=== PATIENT | female | born 2000 | race Two or more races ===

== ENCOUNTER 2023-12-06 21:34 | Emergency (ER) | payer OTHER ==
[~2023-12-06] VITALS: Ht 160 cm; Wt 59.0 kg
[2023-12-06 23:36] LABS: HEMATOCRIT 33.2 % (36.0-45.00); MEAN CELL VOLUME 76.2 fL (80.00-100.00); MEAN CORPUSCULAR HEMOGLOBIN 25.3 pg (27.00-32.0); MEAN CORPUSCULAR HGB CONC 33.2 g/dl (32.0-36.0); PLATELET COUNT 194 K/uL (150-450); RED BLOOD COUNT 4.36 M/uL (4.00-6.00); RED CELL DISTRIBUTION WIDTH 14.9 % (11.5-14.5)
[2023-12-06 23:51] LABS: INR 1.02; PARTIAL THROMBOPLASTIN TIME 30.2 SECONDS (22.0-34.0); PROTHROMBIN TIME 10.7 SECONDS (9.0-11.5)
[2023-12-06 23:58] LABS: ALBUMIN 3.5 gm/dL (3.4-5.0); BILIRUBIN TOTAL 0.32 mg/dL (0.3-1.2); CALCIUM 9.2 mg/dL (8.5-10.1); CREATININE SERUM 0.78 mg/dL (0.55-1.02); GFR 90.73; GLOBULINA 3.3 G/DL (2.4-3.5); POTASSIUM 3.2 mEq/L (3.5-5.1); TOTAL PROTEIN 6.8 gm/dL (6.4-8.2)
[2023-12-07 00:08] LABS: PH,URINE 5.5 (5.0-8.0); URINE APPEARANCE Clear; URINE BILIRRUBIN Negative (NEGATIVE); URINE BLOOD Large; URINE COLOR Orange; URINE GLUCOSE Negative (NEGATIVE); URINE KETONE Negative (NEGATIVE); URINE LEUKOCYTE Small; URINE NITRATE Negative; URINE PROTEIN 30 (NEGATIVE); URINE UROBILINOGEN 0.2 E.U./dl
[2023-12-07 00:10] LABS: URINE BACTERIA 143.6 uL (0.0-1933); URINE RBC 9572.7 uL (0.0-20.8); URINE WBC 55.1 uL (0.0-23.2)
[2023-12-07 00:26] LABS: URINE CAST 1.06 uL (0.0-1.40)
[2023-12-07] MEDS ORDERED: ONDANSETRON HCL 2 MG/ML VIAL IV ONE (03:00)
[2023-12-07] MEDS ORDERED: DOXYCYCLINE HYCLATE 100MG IV ONE (03:00)
[2023-12-07] MEDS ORDERED: MEPERIDINE HCL/PF 50 MG/ML VIAL IM ONE (03:00)
[2023-12-07] MEDS ORDERED: ONDANSETRON HCL 2 MG/ML VIAL ONE (03:00)
[2023-12-07] MEDS ORDERED: RINGERS SOLUTION,LACTATED 1,000 ML IV SCH (03:00)
[2023-12-07] MEDS ORDERED: MISOPROSTOL 100 MCG TABLET VAG ONE (03:00)
== END 2023-12-07 11:33 | disposition home or self-care (01) ==
LOC: ER 21:35
PROVIDERS: General Practice
DX: O03.4 Incomplete spontaneous abortion without complication (principal)